=== PATIENT | female | born 2000 | race Caucasian/White ===

== ENCOUNTER 2020-12-13 09:52 | Emergency (ER) | payer OTHER ==
[2020-12-13 09:57] VITALS: RESP 18
[2020-12-13] MEDS ORDERED: KETOROLAC 15 MG/ML 1 ML VIAL IM STA (10:09)
--- NOTE | 2020-12-13 11:22 | XR ---
EXAMINATION TYPE: XR thoracic spine 2V DATE OF EXAM: 12/13/2020 CLINICAL HISTORY: pain TECHNIQUE: Frontal, lateral, and swimmer's view of thoracic spine are obtained. COMPARISON: None. FINDINGS: Thoracic spine show satisfactory alignment without evidence of acute fracture or dislocatio n. Vertebral body heights are preserved. Disc spaces are well preserved. Visualized ribs are unrem arkable. IMPRESSION: No acute fracture or dislocation is seen in the thoracic spine. ICD 10 NO FRACTURE, INIT IAL EVALUATION
--- NOTE | 2020-12-13 11:42 | ED ---
Back Pain HPI - General Chief Complaint: Back Pain/Injury Stated Complaint: Back pain Time Seen by Provider: 12/13/20 09:58 Source: patient, RN notes reviewed Limitations: no limitations - History of Present Illness Initial Comments: Patient is a 20-year-old female that presents to emergency department complaining of upper back pain. She notes this only occurs when she looks down or puts her chin towards her chest. She notes that she does not have any injuries or trauma to her back. She notes that it just feels like a pulling all tight sensation. She was otherwise a well-appearing 20 oh female in no apparent distress or pain. She denied any chest pain first breath headache nausea vomiting diarrhea constipation fever fatigue chills. - Related Data Previous Rx's Medication Instructions Recorded Cyclobenzaprine HCl 10 mg PO TID 10 Days #30 tab 12/13/20 Allergies Allergy/AdvReac Type Severity Reaction Status Date / Time No Known Allergies Allergy Verified 12/13/20 09:54 Review of Systems ROS Statement: Those systems with pertinent positive or pertinent negative responses have been documented in the HPI. ROS Other: All systems not noted in ROS Statement are negative. Past Medical History Past Medical History: No Reported History History of Any Multi-Drug Resistant Organisms: None Reported Past Surgical History: No Surgical Hx Reported Past Psychological History: No Psychological Hx Reported Smoking Status: Never smoker Past Alcohol Use History: None Reported Past Drug Use History: None Reported General Exam Limitations: no limitations General appearance: alert, in no apparent distress Head exam: Present: atraumatic, normocephalic, normal inspection Eye exam: Present: normal appearance, PERRL, EOMI. Absent: scleral icterus, conjunctival injection, periorbital swelling ENT exam: Present: normal exam, mucous membranes moist Neck exam: Present: normal inspection Respiratory exam: Present: normal lung sounds bilaterally. Absent: respiratory distress, wheezes, rales, rhonchi, stridor Cardiovascular Exam: Present: regular rate, normal rhythm, normal heart sounds. Absent: systolic murmur, diastolic murmur, rubs, gallop, clicks Extremities exam: Present: normal inspection, full ROM, normal capillary refill. Absent: tenderness, pedal edema, joint swelling, calf tenderness Back exam: Present: normal inspection, full ROM. Absent: tenderness, CVA tenderness (R), CVA tenderness (L), muscle spasm, paraspinal tenderness, vertebral tenderness Neurological exam: Present: alert, oriented X3 Psychiatric exam: Present: normal affect, normal mood Skin exam: Present: warm, dry, intact, normal color. Absent: rash Course Vital Signs 12/13/20 12/13/20 09:54 10:56 Temperature 98.2 F Pulse Rate 104 H Respiratory 18 18 Rate Blood Pressure 130/91 O2 Sat by Pulse 98 Oximetry Medical Decision Making - Medical Decision Making 20-year-old female complaining of upper back pain. X-ray thoracic spine, 15 mg Toradol ordered. X-ray imaging negative for any acute fractures or dislocations. Patient will be sent muscle relaxers to pharmacy. Case discussed with Dr. Ly, patient discharge home. - Radiology Data Radiology results: report reviewed, image reviewed X-ray thoracic spine: No acute fractures or dislocations. Disposition Clinical Impression: Thoracic back pain Disposition: HOME SELF-CARE Condition: Stable Instructions (If sedation given, give patient instructions): Back Pain (ED) Additional Instructions: Please return to the Emergency Department if symptoms worsen or any other concerns. Follow-up with primary care 1-2 days. Take muscle relaxers as prescribed. Prescriptions: Cyclobenzaprine HCl 10 mg PO TID 10 Days #30 tab Is patient prescribed a controlled substance at d/c from ED?: No Referrals: Nonstaff,Physician [Primary Care Provider] - 1-2 days Time of Disposition: 11:41
[2020-12-13 11:55] VITALS: BP 109/71; PULSE 77; TEMP 97.8
== END 2020-12-13 11:51 | disposition home or self-care (01) ==
LOC: EC 09:52
DX: M54.6 Pain in thoracic spine (principal)
CPT/HCPCS: 72070; 99283; 96372; J1885

== ENCOUNTER → 2024-04-05 | Outpatient (CLI) | payer OTHER ==
[2024-04-05 20:43] LABS: Basophils # (A) 0.03 X 10*3/uL (0.00-0.10); Basophils % (A) 0.5 %; Eosinophils # (A) 0.04 X 10*3/uL (0.04-0.35); Eosinophils % (A) 0.7 %; HCT 39.4 % (37.2-46.3); HGB 13.2 g/dL (12.0-15.0); Lymphocytes % (A) 28.2 %; MCH 30.7 pg (27.0-32.0); MCHC 33.5 g/dL (32.0-37.0); MCV 91.6 FL (80.0-97.0); Mean Platelet Volume 11.9 FL (9.5-12.2); Monocytes % (A) 8.8 %; NRBC Per 100 WBC 0 X 10*3/uL (0.00-0.01); Neutrophils % (A) 61.6 %; Platelet Count 213 X 10*3/uL (140-440); RDW 11.8 % (11.5-14.5); WBC 5.68 X 10*3/uL (4.50-10.00)
== END | disposition home or self-care (01) ==
LOC: LABPAT 12:42
PROVIDERS: ATTEND Obstetrics & Gynecology
DX: Z01.818 Encounter for other preprocedural examination (principal)
CPT/HCPCS: 85025; 86850; 86900; 86901

== ENCOUNTER 2024-04-07 06:04 | Day surgery (SDC) | payer OTHER ==
[2024-04-07] MEDS: ONDANSETRON 4 MG/2 ML VIAL IVP ONE (07:14)
[2024-04-07] MEDS: DEXAMETHASONE SOD PHOSPHATE 4 MG/ML 1 ML VIAL IV ONE (07:14)
[2024-04-07] MEDS: LACTATED RINGERS 1,000 ML IV ONE (07:20)
[2024-04-07] MEDS: DOXYCYCLINE 100 MG CAP PO PRN (07:20)
[2024-04-07] MEDS ORDERED: LACTATED RINGERS 1,000 ML IV SCH (07:24)
[2024-04-07] MEDS ORDERED: DEXAMETHASONE SOD PHOSPHATE 4 MG/ML 1 ML VIAL IV ONE (07:24)
[2024-04-07] MEDS ORDERED: droPERidol 5 MG/2 ML VIAL IVP ONE (07:24)
[2024-04-07] MEDS ORDERED: LIDOCAINE 1% (10MG/ML) FOR IV START INTRADERMA PRN (07:24)
[2024-04-07] MEDS ORDERED: HYDROmorphone 0.5 MG/0.5 ML SYRINGE IVP PRN (07:24)
[2024-04-07] MEDS ORDERED: ONDANSETRON 4 MG/2 ML VIAL IVP ONE (07:24)
[2024-04-07] MEDS ORDERED: PROPOFOL 10 MG/ML 20 ML VIAL IV ONE (07:29)
[2024-04-07] MEDS ORDERED: LIDOCAINE 1% INJ 10MG/ML (20 ML MDV) ONE (07:29)
[2024-04-07] MEDS ORDERED: fentaNYL (PF) 50 MCG/ML 2 ML AMP ONE (07:29)
[2024-04-07] MEDS ORDERED: KETOROLAC 15 MG/ML 1 ML VIAL ONE (07:29)
[2024-04-07] MEDS ORDERED: MIDAZOLAM 2 MG/2 ML VIAL ONE (07:29)
--- NOTE | 2024-04-07 08:05 | P.OP ---
Date of Procedure: 04/07/24 Preoperative Diagnosis: Missed at 8 weeks gestation Postoperative Diagnosis: Same Procedure(s) Performed: Suction Dilation & Curettage Implants: None Anesthesia: VIMALA Surgeon: Shirley Feliz Estimated Blood Loss (ml): 50 IV fluids (ml): 500 Urine output (ml): 0 Pathology: other (products of conception) Condition: stable Disposition: floor Indications for Procedure: Ms. Goff is a 23 year old at 9 weeks gestation by LMP who presents with missed measuring 8 weeks gestation. Risks, benefits, and alternatives to suction D&C are discussed with the patient including risk of bleeding, infection, uterine perforation, and damage to surrounding structures. The patient understands these risks and desires to proceed with surgery as discussed. Operative Findings: Minimal products of conception removed. Blood type Rh positive. Uterus sounds to 8 centimeters. Description of Procedure: The patient was taken to the operating room where a general anesthetic was administered. She was then positioned in the dorsal lithotomy position and prepped and draped in the normal sterile fashion. Once the anesthetic was found to be adequate, a bimanual exam was performed under anesthetic. Next, a weighted speculum was placed in the vagina. The anterior lip of cervix was grasped with the tenaculum and dilated to accommodate the suction curette. An 8 mm suction curette was connected to the suction and was placed in the cervix and a suction curettage was performed. Two passes were made with the suction curettage. Next, a sharp curettage was performed obtaining a small amount of tissue and this was followed by third suction curettage. After the procedure, the tenaculum was removed. The cervix was hemostatic. The weighted speculum was removed. After the procedure, a second bimanual exam was performed and the patient's uterus had significantly decreased in size.The patient was taken from the operating room in stable condition after she was cleaned. She will be discharged home today and will follow up in the office in 2 weeks.
[2024-04-07 08:12] VITALS: TEMP 97.2
[2024-04-07 08:52] VITALS: RESP 17
[2024-04-07 09:03] VITALS: BP 125/77; PULSE 58
== END 2024-04-07 09:33 | disposition home or self-care (01) ==
LOC: OR 06:04
PROVIDERS: ATTEND Obstetrics & Gynecology
DX: O02.1 Missed abortion (principal); Z98.890 Other specified postprocedural states
CPT/HCPCS: 59820; 88305; J2250; J1100; J2405; J2003; J3010; J1885; J2704